=== PATIENT | female | born 1980 | race Caucasian/White ===

== ENCOUNTER 2021-05-10 15:40 | Outpatient (CLI) | payer OTHER, MEDICAID, SELFPAY ==
[2021-05-10 15:55] VITALS: PULSE 105; O2SAT 98
[2021-05-10 16:03] VITALS: BP 124/61; PULSE 103; O2SAT 98
[2021-05-10 16:08] VITALS: BMI 44.2
--- NOTE | 2021-05-10 17:14 | OB.TRI.NOTE ---
HPI - General HPI Narrative VAMSHI CONTRERAS, is a 40 F at 37.6 weeks gestation who presents to triage s/p fall. Patient reported walking up the steps to house around 1430 and tripped. She fell forward and hit abdomen. Patient denies any abdominal pain, vaginal bleeding or loss of fluid. Positive movement. Maternal Data Information SARAH Calculator Estimated Delivery Date Method Current WG Current Estimate 05/25/21 Manual 37w 6d PFSH PFSH Home Medications ergocalciferol (vitamin D2) [Vitamin D2] 1,000 unit PO DAILY 05/10/21 [History Last Taken 05/09/21] ferrous sulfate [iron] 325 mg PO DAILY 05/10/21 [History Last Taken 05/09/21] omeprazole 40 mg PO DAILY 05/10/21 [History Last Taken 05/09/21] vit,[id number] [PNV 29-1] 1 tab PO DAILY 05/10/21 [History Last Taken 05/09/21] sertraline [Zoloft] 100 mg PO DAILY 05/10/21 [History Last Taken 05/09/21] Allergy/AdvReac Type Severity Reaction Status Date / Time No Known Allergies Allergy Verified 05/10/21 16:10 ROS ROS Narrative Patient seen at bedside. Eyes Eyes: Denies blurry vision Cardiovascular Cardiovascular: Reports none; Denies chest pain at rest, chest pain with activity or dizziness Respiratory/Chest Respiratory/Chest: Denies cough or dyspnea Gastrointestinal Gastrointestinal: Reports none and other; Denies diarrhea or vomiting Genitourinary Genitourinary: Denies dysuria Musculoskeletal Musculoskeletal: Reports none Integumentary Integumentary: Reports none; Denies rash Neurologic Neurologic: Denies dizziness, headache(s) or other visual disturbances Psychiatric Psychiatric: Reports none Physical Exam Const alert and no apparent distress General Appearance: cooperative Orientation / Consciousness: awake Exam Limitations: no limitations HEENT normocephalic Eyes General Eye: normal appearance of both eyes Neck full ROM Chest inspection of chest normal Resp normal respiratory effort and normal air movement Effort and Inspection: symmetric chest movement Auscultation: clear to auscultation bilaterally Cardio regular rate GI soft to palpation, non-tender and non-distended Inspection: and other Back/Spine normal ROM Extremity full ROM, normal capillary refill and no calf tenderness Skin no rashes or lesions noted Neuro oriented x3 and CN's II-XII intact bilaterally Psych mental status grossly normal NST FHR Rate Baby A Baseline: 135 Variability:: Moderate Accelerations:: 15 x 15 Decelerations:: None NST Reactive:: Yes FHR Category:: Category I Uterine Activity:: None Assessment & Plan (1) 37 weeks gestation of : (2) Fall (on) (from) other stairs and steps, initial encounter: (3) Obesity affecting , antepartum: PLAN: Continuous EFM x 4 hours Labs- CBC, T&S, PTT, PT and Fibriogen- normal Cat. 1 tracing, no contractions noted D/C/ home with follow up in office this week Dr. Vogt notified and involved in plan of care
[2021-05-10 17:50] LABS: Absolute Lymphocyte Count 2.68 X10^3/uL (0.83-4.51); Absolute Neutrophil Count 12.7 X10^3/uL (2.0-7.7); Basophil# 0.07 X10^3/uL; Basophil% 0.4 % (0-1); Eosinophil# 0.09 X10^3/uL; Eosinophils% 0.5 % (0-5); Hematocrit 32.3 % (37-47); Hemoglobin 10.1 g/dL (12.0-15.0); Lymphocyte # 2.68 X10^3/ul (0.83-4.51); Lymphocyte % 15.8 % (19-41); Mean Corp Hgb Conc 31.3 g/dL (32-36); Mean Corpuscular Hgb 27.4 pg (27.0-32.0); Mean Corpuscular Volume 87.8 fL (81-99); Monocyte# 1.12 X10^3/uL; Monocyte% 6.6 % (0-10); NRBC Flagged by Analyzer 0 % (0-5); Neutrophil # 12.68 X10^3/uL (2.7-7.7); Neutrophil % 74.6 % (47-70); Platelet Count 307 K/mm3 (150-450); RBC Distribution Width CV 14.6 % (11.6-14.6); RBC Distribution Width SD 47.1 fl (35.1-43.9); Red Blood Count 3.68 M/mm3 (4.2-5.4)
[2021-05-10 18:44] LABS: Prothrombin Time (Protime)PT. 12.9 SECONDS (11.7-14.9)
[2021-05-10 18:46] LABS: Fibrinogen 592 mg/dl (203-444); Partial Thromboplast Time 31.1 Seconds (24.1-36.2)
[2021-05-10 18:57] LABS: Bacteria 0 SEEN /hpf (None Seen); Red Blood Cells-Urine 0 SEEN /hpf (0-5)
[2021-05-10 19:10] LABS: Color, Urine Yellow (Yellow); Glucose, Dipstick Normal (Normal); Ketone-Dipstick 50 mg/dl (Negative); Leukocyte Esterase-Dipstick 25 /ul (Negative); Nitrite-Dipstick Negative (Negative); Occult Blood-Urine Negative /ul (Negative); Protein-Dipstick Negative (Negative); Urine Bilirubin Dipstick Negative (Negative); Urine Clarity Clear (Clear); Urine Urobilinogen Normal (Normal)
[2021-05-10 19:24] VITALS: BP 136/68; PULSE 99
[2021-05-10 19:26] LABS: Mucous, Urine 1+ /hpf (<or=2+); Squamous Epithelial Cells - UA 0-5 SEEN /hpf (5-10)
[2021-05-10 19:27] LABS: White Blood Cells 0-5 SEEN /hpf (0-5)
[2021-05-10 19:32] VITALS: PULSE 97; O2SAT 97
[2021-05-10 19:33] VITALS: O2SAT 97
[2021-05-10 19:36] VITALS: TEMP 36.2
[2021-05-10] MEDS: Acetaminophen 500 MG Tablet 1000 MG PO (20:06)
== END 2021-05-10 20:15 | disposition home or self-care (01) ==
LOC: WPOUT 15:53 → WP 15:54
PROVIDERS: Visit Provider Advanced Practice Midwife
DX: Z04.3 Encounter for examination and observation following other accident (principal); O09.523 Supervision of elderly multigravida, third trimester; O99.213 Obesity complicating pregnancy, third trimester; Z3A.37 37 weeks gestation of pregnancy; E66.9 Obesity, unspecified
CPT/HCPCS: 36415; 59025; 59050; 81001; 85025; 85384; 85610; 85730; 86850; 86900; 86901; 99218; G0378

== ENCOUNTER 2021-05-18 07:05 | Inpatient (IN) | payer OTHER, MEDICAID, SELFPAY ==
[2021-05-18] VITALS (32 sets, daily range): BP systolic 117–138; BP diastolic 57–81; PULSE 88–108; TEMP 36.4–36.8; O2SAT 98–100; BMI 44.0
[2021-05-18] MEDS: Lactated Ringers 1,000 ML 50 ML IV (08:05)
[2021-05-18 08:15] LABS: Absolute Lymphocyte Count 2.26 X10^3/uL (0.83-4.51); Absolute Neutrophil Count 9.6 X10^3/uL (2.0-7.7); Basophil# 0.05 X10^3/uL; Basophil% 0.4 % (0-1); Eosinophil# 0.11 X10^3/uL; Eosinophils% 0.8 % (0-5); Hemoglobin 10.8 g/dL (12.0-15.0); Lymphocyte # 2.26 X10^3/ul (0.83-4.51); Lymphocyte % 17.1 % (19-41); Mean Corp Hgb Conc 31.8 g/dL (32-36); Mean Corpuscular Hgb 27.6 pg (27.0-32.0); Mean Platelet Vol. 9.9 fl (6.2-12.0); Monocyte# 0.97 X10^3/uL; Monocyte% 7.4 % (0-10); NRBC Flagged by Analyzer 0 % (0-5); Neutrophil # 9.57 X10^3/uL (2.7-7.7); Neutrophil % 72.6 % (47-70); Platelet Count 333 K/mm3 (150-450); RBC Distribution Width CV 14.6 % (11.6-14.6); RBC Distribution Width SD 46.3 fl (35.1-43.9); Red Blood Count 3.91 M/mm3 (4.2-5.4); White Blood Count 13.2 K/mm3 (4.4-11.0)
[2021-05-18] MEDS: Oxytocin 30 units/NS 500 ml 30 UNITS/500 ML IV.SOLN IV (08:20)
--- NOTE | 2021-05-18 08:36 | PCM.HP.OB ---
HPI - General General Date of Admission: 05/18/21 HPI Narrative VAMSHI CONTRERAS, is a 40 F -0-2-2 who presents at 39 weeks for induction of labor due to advanced maternal age. complicated by obesity and advanced maternal age. History of depression and depression. Maternal Data Information SARAH Calculator Estimated Delivery Date Method Current WG Current Estimate 05/25/21 Manual 39w 0d PFSH PFS Medical History (Updated 05/18/21 @ 16:53 by Saida Mcknight CNM) Anxiety Asthma Depression depression Prolonged rupture of membranes, delivered Home Medications ergocalciferol (vitamin D2) [Vitamin D2] 1,000 unit PO DAILY 05/10/21 [History Last Taken 05/09/21 21:00] ferrous sulfate [iron] 325 mg PO DAILY 05/10/21 [History Last Taken 05/09/21 21:00] omeprazole 40 mg PO DAILY 05/10/21 [History Last Taken 05/17/21 23:00] vit,[id number] [PNV 29-1] 1 tab PO DAILY 05/10/21 [History Last Taken 05/17/21 23:00] sertraline [Zoloft] 100 mg PO DAILY 05/10/21 [History Last Taken 05/16/21 21:00] Allergy/AdvReac Type Severity Reaction Status Date / Time No Known Allergies Allergy Verified 05/10/21 16:10 Social History Smoking Status: Former smoker History Elective abortions Hx Para 2 Spontaneous abortions Hx # Term Pregnancies Ectopic pregnancies Hx # Pregnancies Multiple births # of living children NST FHR Rate Baby A Baseline: 125 Variability:: Moderate Accelerations:: 15 x 15 Decelerations:: None NST Reactive:: Yes FHR Category:: Category I Uterine Activity:: Irregular ROS Constitutional Constitutional: Reports systems reviewed and no addt'l complaints, except as documented; Denies headache(s) Eyes Eyes: Denies acute decrease in peripheral vision, blurry vision or change in vision ENT HEENT: Reports systems reviewed and no addt'l complaints, except as documented Cardiovascular Cardiovascular: Denies chest pain or dizziness Respiratory/Chest Respiratory/Chest: Denies cough, dyspnea, dyspnea on exertion, shortness of breath at rest or shortness of breath with exertion Gastrointestinal Gastrointestinal: Denies abdominal pain, diarrhea, nausea or vomiting Genitourinary Genitourinary: Denies abdominal discomfort or movement Musculoskeletal Musculoskeletal: Denies limited range of motion Integumentary Integumentary: Reports systems reviewed and no addt'l complaints, except as documented Neurologic Neurologic: Reports systems reviewed and no addt'l complaints, except as documented Psychiatric Psychiatric: Reports systems reviewed and no addt'l complaints, except as documented Endocrine Endocrinology: Reports systems reviewed and no addt'l complaints, except as documented Hematologic/Lymphatic Hematologic/Lymphatic: Reports systems reviewed and no addt'l complaints, except as documented Allergic/Immunologic Allergic/Immunologic: Reports systems reviewed and no addt'l complaints, except as documented Vital Signs Vital Signs Vital Signs: 05/18/21 07:51 Temperature 97.9 F Pulse Rate 88 Blood Pressure 126/69 H BP Systolic 126 BP Diastolic 69 Weight Weight: 264 lb 8.875 oz Body Mass Index (BMI) 44.0 Physical Exam Const alert and oriented x3 General Appearance: cooperative Orientation / Consciousness: awake, oriented to person, oriented to place and oriented to time Exam Limitations: no limitations HEENT normocephalic Head and Scalp: normal to inspection, normocephalic and atraumatic Face and Sinus: normal facial exam Eyes General Eye: normal appearance of both eyes Neck full ROM Chest Chest: symmetrical chest wall rise Resp normal respiratory effort and normal air movement Auscultation: clear to auscultation bilaterally Cardio regular rate, regular rhythm, S1 normal heart sound, S2 normal heart sound, no murmurs, no rub, no gallops and no clicks GI normal to inspection, nondistended, normoactive bowel sounds and non-tender appearance of the vagina normal Bladder / Kidney Exam: no CVA tenderness Manual OB Exam: estimated gestational size large, presentation cephalic, dilated closed, effaced 50, station -3 and other exam per nursing staff Back/Spine normal ROM Extremity normal to inspection and full ROM Skin no rashes or lesions noted Neuro oriented x3, CN's II-XII intact bilaterally and moves all extremities Sensorium / Orientation: awake, alert and oriented to person Motor Exam: clonus absent Deep Tendon Reflexes: Rt Patellar (L4): 2+ and Lt Patellar (L4): 2+ Labs Labs Labs: Blood Type O POSITIVE Antibody Screen NEGATIVE Hct 34.0 % (37-47) L Hgb 10.8 g/dL (12.0-15.0) L GBS negative Covid negative Rubella nonimmune RPR negative Hepatitis B surface antigen negative Hepatitis C antibody negative HIV negative o Positive Gonorrhea chlamydia negative Assessment & Plan (1) Obesity affecting , antepartum: (2) 39 weeks gestation of : (3) Advanced maternal age (AMA) in : (4) Multiparity: (5) LGA (large for gestational age) fetus: (6) Anemia affecting : (7) Rubella non-immune status, antepartum: (8) History of depression: (9) History of depression: PLAN: 1. Admit to labor and delivery. Routine labs 2. Pitocin per protocol 3. Epidural for pain management upon patient request 4. GBS negative 5. Rubella nonimmune, offer vaccine 6. LGA last ultrasound showed 98th percentile at 35 weeks 4 days, 7 pounds 10 ounces 7. Continuous external monitoring 8. Dr. Barahona collaborative physician notified of patient status
[2021-05-18] MEDS: Acetaminophen 500 MG Tablet PO ×2 (09:45→19:23)
[2021-05-18] MEDS: Oxytocin 30 units/NS 500 ml 30 UNITS/500 ML IV.SOLN 10 UNITS IV (12:06)
[2021-05-18] MEDS: Lactated Ringers 1,000 ML 200 ML IV ×3 (12:43→21:00)
[2021-05-18] MEDS: Lactated Ringers 500 ML 999 ML IV ×2 (14:55→21:55)
[2021-05-18] MEDS: fentaNYL-bupivacaine (epidural) 100 ML BAG EPIDURAL ×2 (15:44→20:06)
--- NOTE | 2021-05-18 16:50 | PCM.PN.OB ---
Subjective Subjective Resting comfortably sitting in bed with epidural. Partner at bedside. Objective Data Objective Data Vital Signs: Vital Signs Temp Pulse BP Pulse Ox 97.9 F 103 H 119/65 100 05/18/21 07:51 05/18/21 16:30 05/18/21 16:30 05/18/21 16:30 Weight: 264 lb 8.875 oz Body Mass Index (BMI) 44.0 Intake & Output: Intake and Output for Last 24 Hours 05/16/21 05/17/21 05/18/21 23:59 23:59 23:59 Intake Total 1480.14 / 1480.14 Balance 1480.14 / 1480.14 Lab / Micro Data Result Diagrams: 05/18/21 08:05 Labs: Laboratory Results - last 24 hr 05/18/21 08:05: WBC 13.2 H, RBC 3.91 L, Hgb 10.8 L, Hct 34.0 L, MCV 87.0, MCH 27.6, MCHC 31.8 L, RDW Std Deviation 46.3 H, RDW Coeff of Jeremy 14.6, Plt Count 333, MPV 9.9, Immature Gran % (Auto) 1.700 H, Neut % (Auto) 72.6 H, Lymph % (Auto) 17.1 L, Sharp % (Auto) 7.4, Eos % (Auto) 0.8, Baso % (Auto) 0.4, Absolute Neuts (auto) 9.6 H, Absolute Lymphs (auto) 2.26, Nucleated RBC % 0 05/18/21 08:05: Blood Type O POSITIVE, Antibody Screen NEGATIVE Physical Exam Narrative 4 cm / 50%/0 AROM for moderate amount of meconium light stained fluid NST FHR Rate Baby A Baseline: 135 Variability:: Moderate Accelerations:: 15 x 15 Decelerations:: None FHR Category:: Category I Uterine Activity:: every 3 minutes, strong Assessment & Plan (1) 39 weeks gestation of : (2) Advanced maternal age (AMA) in : (3) Multiparity: (4) Obesity affecting , antepartum: (5) History of depression: (6) History of depression: (7) Rubella non-immune status, antepartum: (8) Anemia affecting : (9) LGA (large for gestational age) fetus: PLAN: 1. Continue with active management, progressing. Pitocin per protocol 2. AROM 3. Epidural for pain management 4. Dr. Barahona notified of patient labor status
[2021-05-19] VITALS (22 sets, daily range): BP systolic 106–139; BP diastolic 52–75; PULSE 87–119; RESP 16–18; TEMP 36.3–36.7; O2SAT 97–98
[2021-05-19] MEDS: Lactated Ringers 500 ML 999 ML IV (00:01)
[2021-05-19] MEDS: Calcium Carbonate 500 MG Tablet 1000 MG PO (00:24)
[2021-05-19] MEDS: fentaNYL-bupivacaine (epidural) 100 ML BAG EPIDURAL ×2 (00:29→04:55)
[2021-05-19] MEDS: Amnioinfusion- 0.9% NS 1,000 ML IV.SOLN. INTRA-UTER (00:29)
[2021-05-19] MEDS: Oxytocin 30 units/NS 500 ml 30 UNITS/500 ML IV.SOLN IV (01:30)
[2021-05-19] MEDS: Lactated Ringers 1,000 ML 200 ML IV ×2 (01:33→06:29)
[2021-05-19] MEDS: Acetaminophen 500 MG Tablet PO ×2 (02:42→18:13)
[2021-05-19] MEDS: Oxytocin 30 units/NS 500 ml 30 UNITS/500 ML IV.SOLN 334 UNITS IV (07:30)
--- NOTE | 2021-05-19 07:51 | EX.PCM.OBRPT ---
Maternal Data Information SARAH Calculator Estimated Delivery Date Method Current WG Current Estimate 05/25/21 Manual 39w 1d Vaginal Delivery Maternal Presentation Maternal Presentation: Medically Indicated Induction Type of Induction: Pitocin Medical Reason for Induction: - (advanced maternal age) Operative Information Date of Procedure: 05/19/21 Pre-Operative Diagnosis: Induction of labor Post-Operative Diagnosis: Surgery / Procedure Performed: Spontaneous Vaginal Delivery Type of Anesthesia: Epidural Estimated Blood Loss: 450 ml Time of Delivery: 07:28 Findings Description of Procedure: Progressed to complete with urge to push. Nursery, respiratory, and called to delivery for light meconium stained fluid. of viable female over first degree perineal laceration, APGARS 9,9. head delivered and body immediately forthcoming, mouth and nares suctioned for secretions, strong cry. Placed on maternal abdomen skin to skin. Pitocin started for active 3rd stage management. Cord clamped and cut after delayed cord clamping by FOB. Placenta delivered intact, 3 vessel cord via anita. Perineum inspected and revealed first degree perineal laceration, repaired under epidural analgesia with 3.0 vicryl. Vaginal sweep completed, sponge and instrument count correct. Mom and baby stable. Family bonding well. notified of delivery. Presentation: Vertex and GOMEZ Amniotic Membrane Rupture Type: Artificial Amniotic Fluid Description: Lightly stained meconium Placental Delivery Description: Spontaneous Placenta Disposition: [facility] Cord Vessel Description: 3 Vessels Cord Entanglement: None A Gender: Female (1 minute): 9 (5 minute): 9 Delayed Cord Clamping: Yes Post Vaginal Delivery Medications Given After Delivery: IV Pitocin Episiotomy Description: None Laceration: Perineal Extension/lac and 1st degree Complication Complications: None
[2021-05-19] MEDS: Sertraline 100 MG Tablet PO (10:43)
[2021-05-19] MEDS: 0.9% Saline Lock 10 ML Syringe IV (10:45)
[2021-05-19] MEDS: Ibuprofen 600 MG Tablet PO (12:17)
[2021-05-19] MEDS: Prenatal Vits Tablet 1 TABLET PO (12:17)
[2021-05-20] MEDS: Ibuprofen 600 MG Tablet PO (00:56)
[2021-05-20 00:58] VITALS: BP 131/68; PULSE 100; RESP 18
[2021-05-20 04:53] VITALS: BP 125/76; PULSE 87; RESP 18
[2021-05-20 06:09] LABS: Hematocrit 28.8 % (37-47); Mean Corp Hgb Conc 31.3 g/dL (32-36); Mean Corpuscular Hgb 27.1 pg (27.0-32.0); Mean Corpuscular Volume 86.7 fL (81-99); Mean Platelet Vol. 9.8 fl (6.2-12.0); Platelet Count 285 K/mm3 (150-450); RBC Distribution Width CV 14.6 % (11.6-14.6); Red Blood Count 3.32 M/mm3 (4.2-5.4); White Blood Count 12.5 K/mm3 (4.4-11.0)
--- NOTE | 2021-05-20 07:58 | PCM.PN.OB ---
Subjective Subjective Patient seen at bedside, doing well. Patient reports good pain control. Mild lochia. Breast-feeding. Patient ready for DC home today. Patient denies any headaches or visual changes. Objective Data Objective Data Vital Signs: Vital Signs Temp Pulse Resp BP Pulse Ox 97.8 F 87 18 125/76 H 98 05/19/21 20:19 05/20/21 04:53 05/20/21 04:53 05/20/21 04:53 05/19/21 12:41 Oxygen Delivery Method Room Air Weight: 120 kg Body Mass Index (BMI) 44.0 Intake & Output: Intake and Output for Last 24 Hours 05/18/21 05/19/21 05/20/21 23:59 23:59 23:59 Intake Total 4163.11 / 4163.11 3196.84 / 3196.84 Output Total 1500 / 1500 1700 / 1700 Balance 2663.11 / 2663.11 1496.84 / 1496.84 Lab / Micro Data Result Diagrams: 05/20/21 06:00 Labs: Laboratory Results - last 24 hr 05/20/21 06:00: WBC 12.5 H, RBC 3.32 L, Hgb 9.0 L, Hct 28.8 L, MCV 86.7, MCH 27.1, MCHC 31.3 L, RDW Std Deviation 46.0 H, RDW Coeff of Jeremy 14.6, Plt Count 285, MPV 9.8 Physical Exam Const alert and oriented x3 General Appearance: cooperative HEENT normocephalic Neck General: normal visual inspection GI soft to palpation and non-distended GI Narrative: Fundus firm Extremity normal to inspection and no calf tenderness Skin no rashes or lesions noted Neuro oriented x3 and CN's II-XII intact bilaterally Psych mental status grossly normal Assessment & Plan (1) Vaginal delivery: PLAN: PPD#1 , Doing well Routine care pain mgmt ambulation dc home
--- NOTE | 2021-05-20 07:59 | PCM.DC ---
Discharge Instructions Diet Discharge Diet: No restrictions Activity May resume sexual activity in: 6-8 weeks Dressing / Incision Call your doctor if you observe: Fever of 101 or Higher, Inability to urinate, Using more than 1 pad per hour and Uncontrolled pain Follow Up Care Please Follow Up With: Pily Ogden MD When: 1-2 weeks post and again at 6 weeks post . [phone] Test Results: Test results from this visit will be discussed in further detail at your follow-up appointment, if applicable. Discharge Plan Admission Admit Date/Time: 05/18/21 07:05 Attending Provider: Saida Mcknight Discharge Orders/Prescriptions Prescriptions: New acetaminophen 500 mg Tablet 500 - 1,000 mg PO Q6H PRN PRN (Reason: Pain Score 1-3) Qty: 0 RF: 0 ibuprofen 600 mg Tablet 600 mg PO Q6H PRN PRN (Reason: Pain Score 1-3) Qty: 0 RF: 0 Continued sertraline [Zoloft] 100 mg Tablet 100 mg PO DAILY RF: 0 omeprazole 40 mg Capsule,Delayed Release(Dr/Ec) 40 mg PO DAILY RF: 0 ferrous sulfate [iron] 325 mg (65 mg iron) Tablet 325 mg PO DAILY RF: 0 ergocalciferol (vitamin D2) 1,000 unit Capsule 1,000 unit PO DAILY RF: 0 PNV 29-1 29 mg iron- 1 mg Tablet 1 tab PO DAILY RF: 0 Disposition Disposition (needs filled in before D/C Order can be placed): Home, Self Care
[2021-05-20 08:06] VITALS: BP 131/79; PULSE 94; RESP 16; TEMP 36.2; O2SAT 99
[2021-05-20] MEDS: Acetaminophen 500 MG Tablet PO (08:17)
[2021-05-20] MEDS: Sertraline 100 MG Tablet PO (08:18)
--- NOTE | 2021-05-20 11:45 | CASEMGMT ---
social Work Brief Assessment Labor and Delivery Unit Patient Address: [address] [place] [address]., [place] [id number] Phone number: [phone] Date of Referral/Notification: 05/19/2021 Time of Referral: 1629 Referred By: Saida Mcknight CNM Date of Intervention: 05/20/2021 Time of Intervention: 1145 Reason for Referral: Maternal history of depression Informant: Medical record and mother of baby (MOB) Miladis Al; father of baby (FOB) Charles referral also present. History: MOB is a 40-year-old female, to the FOB. MOB and FOB now have 3 children together: Estrada (age 5 and half), getting in (age 3-1/2), and baby girl Krystyna (born 05/19/2019). Krystyna delivered weighing 8 pounds 13 ounces. Apgars 8 and 9 at 1 and 5 minutes of life respectively. FOB reports to work at [employer]. 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 MOB endorses history of depression and some history of depression, currently treated with Zoloft. Plans to remain on this in the timeframe. MOB and FOB report to have adequate support from family and friends. MOB and FOB report to have a current children services case open, due to reported concerns with prior housing and MOB depression. FOB made comment that the MOB sometimes zones out with the depression. MOB reported that a neighbor made a call about housing issues, which prompted children services involvement. At this point it is reported that MOB receives a homemaker aid at home once a week to help and get the MOB suggested. FOB reports that he works long hours and is now is at home. MOB and FOB deny any substance use issues. Upon admission, to nursing staff, the MOB denied any concerns about domestic violence issues. Assessment: Met with MOB and FOB together, as family preparing to leave the hospital. MOB at sink attempting to the baby, and washing the baby's head. FOB sitting on the couch upon this telegraphic typewriter operator entering the room. FOB expressed that he is ready to go home, and not real patient about being in the hospital. Reports it was difficult watching the MOB be induced, and have such a long waiting process for delivery. MOB voiced that it is the father not wanting to be in the hospital longer. Through conversation the FOB did answer many questions although MOB did join in and participate once have the baby settled. Observed FOB to be more restless. MOB with a more calm demeanor. Both parents cooperative with social work visit. MOB helped the baby, and was gentle. There have been no voiced concerns by staff regarding parent-child interactions or bonding. Educated to mood and anxiety disorders, risk factors, and that both mothers and fathers are at risk for this. FOB voiced that he does not get depressed that he just has angry. This telegraphic typewriter operator explored what the FOB does with his anger. FOB reported to yell and throw things. MOB voiced then that FOB throws Frisbee's and things. FOB then jumped in and said he does not believe in abuse and does not hit other people. FOB then voiced that was surprised nobody at the hospital had asked MOV yet if she felt safe with the FOB. MOB inform the FOB that she had been asked already but not when the FOB was in the room. FOB reported that every other hospital MOB was asked this question in front of the FOB. Reports prior deliveries at [facility] and [facility]. MOB and FOB report to have necessary supplies to care for the baby at home. The FOB does have this week off of work yet to help. Inquired whether family needs any information on WIC, and the MOB and FOB reported that FOB makes too much money. MOB and FOB deny any concerns with home-going. MOB indicated plan to remain on Zoloft. Provided parents with information on mood and anxiety disorders, including resources to utilize if needed in the future. Plan: MOB and infant are discharging home today. Resources given for home-going. We will plan to notify children services about the of baby, due to active children's services case for the older children. -CHACHO Novoa, RADIOLOGY ASSISTANT *This note was generated with Winsteration software. It may contain incorrect words, spelling, and punctuation that were not noted in review of the chart prior to signing*
--- NOTE | 2021-05-21 10:56 | CASEMGMT ---
Social Work Labor and delivery Called [facility] ([facility]) and spoke with Elif Steiner in the intake department. Reported that this family has endorsed an active case with children services. Reported of baby, comments by father of baby having anger, how deals with anger, and mother of baby reportedly having depression that MOB zones out (a reason for [facility] involvement). Elif documented information, and to be relayed to assigned worker, as family just transferred to ongoing services. No other services requested or indicated. -ARMANDO Novoa, PUBLIC HEALTH SOCIAL WORKER
== END 2021-05-20 12:40 | disposition home or self-care (01) | DRG 807 ==
PROVIDERS: Admitting Provider Advanced Practice Midwife; Visit Provider Advanced Practice Midwife
DX: O99.02 Anemia complicating childbirth (principal); D64.9 Anemia, unspecified; O36.63X0 Maternal care for excessive fetal growth, third trimester, not applicable or unspecified; O70.0 First degree perineal laceration during delivery; O99.52 Diseases of the respiratory system complicating childbirth; J45.909 Unspecified asthma, uncomplicated; O77.0 Labor and delivery complicated by meconium in amniotic fluid; O99.214 Obesity complicating childbirth; E66.9 Obesity, unspecified; O99.344 Other mental disorders complicating childbirth; F32.A Depression, unspecified; F41.9 Anxiety disorder, unspecified; Z3A.39 39 weeks gestation of pregnancy; Z79.899 Other long term (current) drug therapy; Z87.891 Personal history of nicotine dependence; Z37.0 Single live birth
CPT/HCPCS: 59025; 59050; 85025; 85027; 86850; 86900; 86901; 94799; 99218; J7030; J7120; A4216; G0378